=== PATIENT | female | born 1960 | race Caucasian/White ===

== ENCOUNTER 2018-09-06 09:01 | Outpatient (CLI) | payer OTHER | END 2018-09-06 09:03 | disposition home or self-care (01) | LOC: SONOGRAMA 09:01 | DX: M75.121 Complete rotator cuff tear or rupture of right shoulder, not specified as traumatic (principal); M75.111 Incomplete rotator cuff tear or rupture of right shoulder, not specified as traumatic ==

== ENCOUNTER 2023-09-08 15:38 | Outpatient (CLI) | payer OTHER | END 2023-09-08 15:41 | disposition home or self-care (01) | LOC: SONOGRAMA 15:38 | PROVIDERS: ATTEND Pathology Anatomic Pathology & Clinical Pathology | DX: D34 Benign neoplasm of thyroid gland (principal); E07.89 Other specified disorders of thyroid; E04.1 Nontoxic single thyroid nodule ==